=== PATIENT | female | born 1995 | race African-American/Black ===

== ENCOUNTER 2020-08-19 03:33 | Emergency (ER) | payer OTHER, SELFPAY ==
--- NOTE | ~2020-08-19 | XR_ITS ---
XR chest 1V portable 08/19/2020 04:08 Indication: Chest pain with fever Procedure: AP portable chest Comparison: No prior studies for comparison. Findings: There is linear subsegmental atelectasis left perihilar and right lower lung zone locations . Heart size normal. No pleural effusion. No pneumothorax. No focal pneumonia. Impression: 1: Bilateral subsegmental atelectasis. Reviewed, dictated and finalized at location A. Impression: 1: Bilateral subsegmental atelectasis.
[2020-08-19 03:39] VITALS: BP 118/81; PULSE 100; RESP 18; TEMP 37.5; O2SAT 98
--- NOTE | 2020-08-19 03:47 | ECG_ITS ---
Measurements Intervals [place] Rate: 92 P: 21 AL: 145 QRS: -3 QRSD: 85 T: -37 QT: 336 QTc: 418 Interpretive Statements SINUS RHYTHM NONSPECIFIC T-WAVE ABNORMALITY- ANTEROLAT/INF LEADS BORDERLINE ECG Electronically Signed On 08-19-2020 5:53:33 CDT by Vernon Cabrera D.O.
--- NOTE | 2020-08-19 04:06 | ED.GENADULT ---
HPI - General Adult General Chief complaint: Chest Pain Stated complaint: Bodyaches, chest pain, difficulty breathing Time Seen by Provider: 08/19/20 03:44 History of Present Illness HPI narrative: Patient with 5-year-old female presents the emergency department with chief complaint of chest discomfort. The patient states this been going on for weeks she reports he seen her primary care physician who told her that it was muscle strain. Patient states that she has been having worsening in her symptoms reports it hurts worse when she takes a deep breath reports that is not improved by anything denies increased pain with palpation of her chest wall. The patient states that she has not been vaccinated for COVID-19 reports that she started having some body aches with it and has had a little bit of a cough as well. Review of Systems Review of Systems: Narrative: A 10 system review of systems was completed on the patient and is negative except for what is stated in the HPI. Nursing and ancillary documentation was reviewed. Exam Narrative: Exam Narrative: GENERAL: Well-appearing, well-nourished, and in no acute distress. HEAD: Normocephalic, atraumatic. EYES: PERRLA and EOMI. ENT: Nares clear, no rhinorrhea or epistaxis. Mucous membranes moist. NECK: Supple. CHEST: Clear to auscultation. No respiratory distress. HEART: Regular rate and rhythm. No murmur heard. Normal peripheral pulses. ABDOMEN: Soft, nontender, nondistended, normal active bowel sounds. EXTREMITIES: Normal range of motion. No edema. SKIN: Warm, dry, no rash. NEURO: No focal deficits. Alert and oriented x3. PSYCH: Normal mood and affect. Course Vital Signs Vital signs: Vital Signs Temperature 37.5 C 08/19/20 03:39 Pulse Rate 100 08/19/20 03:39 Respiratory Rate 18 08/19/20 03:39 Blood Pressure 118/81 08/19/20 03:39 Pulse Oximetry 98 08/19/20 03:39 Temperature 37.5 C 08/19/20 03:39 Pulse Rate 100 08/19/20 03:39 Respiratory Rate 18 08/19/20 03:39 Blood Pressure 118/81 08/19/20 03:39 Pulse Oximetry 98 08/19/20 03:39 Medical Decision Making Vital Signs Vital Signs: Vital Signs Temperature 37.5 C 08/19/20 03:39 Pulse Rate 100 08/19/20 03:39 Respiratory Rate 18 08/19/20 03:39 Blood Pressure 118/81 08/19/20 03:39 Pulse Oximetry 98 08/19/20 03:39 Temperature 37.5 C 08/19/20 03:39 Pulse Rate 100 08/19/20 03:39 Respiratory Rate 18 08/19/20 03:39 Blood Pressure 118/81 08/19/20 03:39 Pulse Oximetry 98 08/19/20 03:39
[2020-08-19 04:18] VITALS: BP 121/72; PULSE 90; RESP 16; O2SAT 98
[2020-08-19] MEDS: ACETAMINOPHEN 500 MG TABLET 1000 MG PO (04:28)
[2020-08-19] MEDS: ASPIRIN 81 MG CHEWABLE TABLET 324 MG PO (04:29)
[2020-08-19 04:35] LABS: Basophils Percent Auto 0.2 % (0.2-1.2); Eosinophils Percent Auto 0.4 % (0-4.4); Hematocrit 39.2 % (37.0-47.0); Hemoglobin 12.8 g/dL (12.0-15.0); Immature Granulocyte Absolute 0.02 K/mm3 (0.00-0.031); Immature Granulocyte Percent A 0.4 % (0-0.5); Lymphocytes Absolute Auto 1.13 K/mm3 (0.9-3.2); Lymphocytes Percent Auto 25.3 % (18.3-44.2); Mean Corpuscular HGB Conc 32.7 g/dl (32-36); Mean Corpuscular Hemoglobin 30.5 pg (26-34); Mean Corpuscular Volume 93.6 fl (80-100); Monocytes Absolute Auto 0.6 K/mm3 (0.1-0.6); Monocytes Percent Auto 13.2 % (2.6-8.5); Neutrophils Absolute Auto 2.7 K/mm3 (1.3-6.7); Neutrophils Percent Auto 60.5 % (45.5-73.1); Platelet Count Result 277 k/mm3 (150-375); Red Blood Count 4.19 M/mm3 (4.2-5.4); Red Cell Distribution Width 13.1 % (11.5-14.5); White Blood Count 4.5 K/mm3 (4.5-10.0)
[2020-08-19 04:44] LABS: Alanine Aminotransferase 27 U/L (4-35); Albumin Level 4.2 g/dL (3.5-5.1); Alkaline Phosphatase 54 U/L (38-126); Anion Gap 9 mmol/L (8-16); Aspartate Amino Transferase 33 U/L (14-36); Bilirubin,Total 0.2 mg/dL (0.2-1.3); Blood Urea Nitrogen 10 mg/dL (7-17); Calcium 8.8 mg/dL (8.4-10.2); Carbon Dioxide 24 mmol/L (22-30); Chloride 106 mmol/L (98-107); Estimated CRCL calculation 91 ml/min; Estimated Glomerular Filt Rate > 60; Glucose 94 mg/dL (65-105); Lipase 75 U/L (23-300); Potassium 3.9 mmol/L (3.4-5.0); Sodium 139 mmol/L (137-145)
[2020-08-19 04:57] LABS: NT Pro B Type Natriuretic Pept 55 pg/mL (5-100); Troponin I < 0.012 ng/mL (0.000-0.034)
[2020-08-19 04:59] LABS: D Dimer < 0.22 ug/mL (<0.48)
[2020-08-19 05:18] VITALS: BP 128/71; PULSE 82; RESP 16; TEMP 37.1; O2SAT 98
[2020-08-19 05:18] LABS: Add Urine Microscopic? YES; Appearance Urine Cloudy (Clear); Bilirubin Urine Negative (Negative); Blood Urine Negative (Negative); Color Urine Yellow (Yellow); Glucose Urine UA Negative (Negative); Ketones Urine Negative (Negative); Leukocyte Esterase Ur Trace LEU/UL (Negative); Mucus Urine Rare /lpf; Nitrate Urine Negative (Negative); Protein Urine 1+ mg/dL (Negative); Specific Grav Ur 1.028 (1.001-1.035); Squamous Epithelial Cell Urine Many /hpf (Few); Urobilinogen Urine Negative mg/dL (<2.0); WBC Urine 0-3 /hpf
[2020-08-19 18:05] LABS: SARS-CoV-2 RNA PCR Positive
== END 2020-08-19 05:18 | disposition home or self-care (01) ==
PROVIDERS: Emergency Provider Emergency Medicine; PCP Nurse Practitioner Family
DX: U07.1 COVID-19 (principal); R94.31 Abnormal electrocardiogram [ECG] [EKG]; R91.8 Other nonspecific abnormal finding of lung field
CPT/HCPCS: 36415; 71045; 80053; 81001; 81025; 83690; 83880; 84484; 85025; 85380; 93005; 99284; A9270; C9803; U0003; U0005

== ENCOUNTER 2020-08-24 13:18 | Emergency (ER) | payer OTHER, SELFPAY ==
--- NOTE | ~2020-08-24 | XR_ITS ---
EXAMINATION: XR chest 2V DATE: 08/24/2020 14:29 INDICATION: Shortness of breath, COVID positive TECHNIQUE: PA and lateral views of the chest are obtained. COMPARISON: 08/19/2020 FINDINGS: There are bibasilar airspace opacities. There is no pleural effusion or pneumothorax. The c ardiomediastinal silhouette is normal. The visualized bones and soft tissues are unremarkable. IMPRESSION: 1. Bibasilar airspace opacities, consistent with COVID 19 pneumonia. Reviewed, dictated and finalized at location A.
--- NOTE | 2020-08-24 13:21 | ECG_ITS ---
Measurements Intervals [place] Rate: 103 P: 12 MD: 143 QRS: 19 QRSD: 91 T: -46 QT: 319 QTc: 419 Interpretive Statements SINUS TACHYCARDIA BORDERLINE ST-T WAVE ABNORMALITY- ANTEROLAT/INF LEADS BORDERLINE ECG Electronically Signed On 08-24-2020 13:52:06 CDT by Vernon Cabrera D.O.
[2020-08-24 13:22] VITALS: BP 139/95; PULSE 108; RESP 22; TEMP 36.6; O2SAT 93
[2020-08-24 13:39] LABS: Basophils Percent Auto 0.2 % (0.2-1.2); Hematocrit 39.8 % (37.0-47.0); Hemoglobin 13.3 g/dL (12.0-15.0); Immature Granulocyte Absolute 0.01 K/mm3 (0.00-0.031); Immature Granulocyte Percent A 0.2 % (0-0.5); Lymphocytes Absolute Auto 1.87 K/mm3 (0.9-3.2); Mean Corpuscular HGB Conc 33.4 g/dl (32-36); Mean Corpuscular Hemoglobin 30.4 pg (26-34); Mean Corpuscular Volume 90.9 fl (80-100); Mean Platelet Volume 9.7 fl (7.4-10.4); Monocytes Absolute Auto 0.3 K/mm3 (0.1-0.6); Neutrophils Percent Auto 47.6 % (45.5-73.1); Platelet Count Result 268 k/mm3 (150-375); Red Blood Count 4.38 M/mm3 (4.2-5.4); Red Cell Distribution Width 12.8 % (11.5-14.5); White Blood Count 4.2 K/mm3 (4.5-10.0)
[2020-08-24 13:49] LABS: Anion Gap 12 mmol/L (8-16); Blood Urea Nitrogen 9 mg/dL (7-17); Calcium 8.9 mg/dL (8.4-10.2); Carbon Dioxide 21 mmol/L (22-30); Chloride 105 mmol/L (98-107); Estimated CRCL calculation 109 ml/min; Estimated Glomerular Filt Rate > 60; Glucose 90 mg/dL (65-105); Potassium 4.2 mmol/L (3.4-5.0); Sodium 138 mmol/L (137-145)
[2020-08-24 15:47] VITALS: BP 124/84; PULSE 99; RESP 24; TEMP 37.1; O2SAT 93
[2020-08-24 16:38] VITALS: BP 132/89; PULSE 78; RESP 18; O2SAT 100
[2020-08-24 17:31] LABS: Troponin I < 0.012 ng/mL (0.000-0.034)
--- NOTE | 2020-08-24 17:37 | ED.URI ---
HPI - URI/Sore Throat General Chief Complaint: Upper Respiratory Infection Stated Complaint: sob, cp, covid + Time Seen by Provider: 08/24/20 16:44 Source: patient Mode of arrival: ambulatory Limitations: no limitations History of Present Illness HPI Narrative: This is a 25-year-old female that presents to the emergency department for chest pain and shortness of breath. Reports she was recently diagnosed with Covid. Reports ongoing shortness of breath and chest pain since. The pain is intermittent and pleuritic in nature. Also reports cough. Denies fever or lower extremity edema. Related Data Home Medications Medication Instructions Recorded Confirmed No Home Medications 08/24/20 08/24/20 Allergies Allergy/AdvReac Type Severity Reaction Status Date / Time No Known Allergies Allergy Verified 08/24/20 13:25 Review of Systems Review of Systems: Narrative: CONSTITUTIONAL: Denies fever CARDIOVASCULAR: Reports chest pain. Denies edema. RESPIRATORY: Reports cough and dyspnea. All systems reviewed & are unremarkable except as noted in HPI and below PMFSH Past Medical History Medical History (Updated 08/24/20 @ 17:49 by Leah Ewing PA-C) No active medical problems Social History Social History (Updated 08/24/20 @ 17:39 by Leah Ewing PA-C) Smoking status: Never smoker Gender identity (if verbalized by the patient): Female Exam Narrative: Exam Narrative: GENERAL: Well-appearing, obese, and in no acute distress. HEAD: Normocephalic, atraumatic. EYES: EOMI. ENT: Nares clear, no rhinorrhea or epistaxis. Mucous membranes moist. Oropharynx without tonsillar hypertrophy exudate or other lesions. NECK: Supple. No adenopathy or masses. CHEST: Clear to auscultation. No respiratory distress. No wheezes rales or rhonchi HEART: Regular rate and rhythm. No murmur heard. Normal peripheral pulses. EXTREMITIES: Normal range of motion. No edema. SKIN: Warm, dry, no rash. NEURO: No focal deficits. Alert and oriented x3. PSYCH: Normal mood and affect Course Vital Signs Vital signs: Vital Signs Temperature 97.8 F 08/24/20 13:22 Pulse Rate 108 H 08/24/20 13:22 Respiratory Rate 22 H 08/24/20 13:22 Blood Pressure 139/95 H 08/24/20 13:22 Pulse Oximetry 93 08/24/20 13:22 Temperature 98.7 F 08/24/20 15:47 Pulse Rate 78 08/24/20 16:38 Respiratory Rate 18 08/24/20 16:38 Blood Pressure 132/89 08/24/20 16:38 Pulse Oximetry 100 08/24/20 16:38 MDM - URI/Sore Throat MDM Narrative Medical decision making narrative: Patient presents to the emergency department for chest pain and shortness of breath. Recently diagnosed with coronavirus. Tachycardic upon arrival, this normalized without intervention. Oxygen saturation has remained normal on room air. CBC and metabolic panel without concerning findings. EKG with nonspecific ST changes, baseline troponin is negative. D-dimer is not elevated. Chest x-ray shows bibasilar airspace opacities consistent with Covid pneumonia. Patient updated on case findings. She is stable and felt appropriate for further outpatient evaluation. She is to follow-up with her primary care doctor. She was given warnings to return to the ER Lab Data Attestation: I reviewed the patient's lab results. Result diagrams: 08/24/20 13:31 08/24/20 13:31 Labs: Lab Results 08/24/20 08/24/20 08/24/20 Range/Units 13:31 13:31 16:59 WBC 4.2 L (4.5-10.0) K/mm3 RBC 4.38 (4.2-5.4) M/mm3 Hgb 13.3 (12.0-15.0) g/dL Hct 39.8 (37.0-47.0) % MCV 90.9 (80-100) fl MCH 30.4 (26-34) pg MCHC 33.4 (32-36) g/dl RDW 12.8 (11.5-14.5) % Plt Count 268 (150-375) k/mm3 MPV 9.7 (7.4-10.4) fl Immature Gran % (Auto) 0.2 (0-0.5) % Neut % (Auto) 47.6 (45.5-73.1) % Lymph % (Auto) 45.0 H (18.3-44.2) % [place] % (Auto) 7.0 (2.6-8.5) % Eos % (Auto) 0.0 (0-4.4) % Baso % (Auto) 0.2 (0.2-1.2) % Lymph #
[2020-08-24 17:38] LABS: D Dimer 0.27 ug/mL (<0.48)
[2020-08-24 17:45] VITALS: BP 132/78; PULSE 97; RESP 18; O2SAT 99
[2020-08-24 18:49] VITALS: BP 137/81; PULSE 82; RESP 18; O2SAT 99
== END 2020-08-24 18:51 | disposition home or self-care (01) ==
PROVIDERS: Physician Assistant; Emergency Provider Emergency Medicine; PCP Nurse Practitioner Family
DX: U07.1 COVID-19 (principal); J12.82 Pneumonia due to coronavirus disease 2019
CPT/HCPCS: 36415; 71046; 80048; 84484; 85025; 85380; 93005; 99284